=== PATIENT | female | born 1955 | race Caucasian/White ===

== ENCOUNTER 2018-03-13 09:32 | Emergency (ER) | payer BC, OTHER ==
--- NOTE | 2018-03-13 09:57 | UC ---
Abdominal Pain Female HPI - HPI Summary HPI Summary: 63 yo female presents with low back pain and lower abdominal pain. She tells me that her low back pain started about 2 weeks ago. 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 Denies specific injury. Has been taking ibuprofen intermittently with mild relief. Certain positions improve her pain. Regarding her lower abdominal pain; she tells me that 2 days ago she developed mild LLQ pain that felt like she needed to have a bowel movement so she took a laxative. The next morning had a bowel movement, but this did not change her pain. Pain seems worse today and she is nauseous. Denies fever, chills, SOB, chest pain, vomiting, diarrhea, constipation, blood in stool, dysuria, hx of kidney stones. She has never had a colonoscopy. - History of Current Complaint Hx Obtained From: Patient Severity Initially: Mild Severity Currently: Moderate Pain Intensity: 6 Pain Scale Used: 0-10 Numeric <Ted Shell - Last Filed: 03/13/18 11:47> <Daniel Kline - Last Filed: 03/13/18 14:18> - History of Current Complaint Stated Complaint: ABDOMINAL/BACK PAIN Time Seen by Provider: 03/13/18 09:57 Allergies/Adverse Reactions: Allergies Allergy/AdvReac Type Severity Reaction Status Date / Time No Known Allergies Allergy Verified 03/13/18 10:10 Home Medications: Home Medications Ibuprofen TAB* [Advil TAB*] 400 mg PO Q6H PRN 03/13/18 [History Confirmed ] PMH/Surg Hx/FS Hx/Imm Hx - Additional Past Medical History Additional PMH: None Previously Healthy: Yes - Family History Known Family History: Positive: None - Social History Occupation: Employed Full-time Lives: With Family Alcohol Use: Occasionally Substance Use Type: None Smoking Status (MU): Light Every Day Tobacco Smoker Type: Cigarettes <Ted Shell - Last Filed: 03/13/18 11:47> Review of Systems Constitutional: Negative Skin: Negative Respiratory: Negative Cardiovascular: Negative Gastrointestinal: Abdominal Pain, Nausea Genitourinary: Negative Motor: Negative Neurovascular: Negative Musculoskeletal: Other: - LBP Neurological: Negative Psychological: Negative All Other Systems Reviewed And Are Negative: Yes <Ted Shell - Last Filed: 03/13/18 11:47> Physical Exam - Summary Physical Exam Summary: GENERAL: NAD. WDWN. No pain distress. SKIN: No rashes, sores, lesions, or open wounds. NECK: Supple. FROM. Nontender. No lymphadenopathy. CHEST: CTAB. No r/r/w. No accessory muscle use. Breathing comfortably and in no distress. CV: RRR. Without m/r/g. Pulses intact. Brisk cap refill. ABDOMEN: Moderate LLQ pain. Soft. No distention or guarding. No CVA tenderness. Bowel sounds present MSK: TTP over lumbar paraspinal muscles. Positive SLR b/l. Strength 5/5 B/L LEs including dorsiflexion and plantar flexion. FROM B/L LEs. No edema. NEURO: Alert. CN II-XII grossly intact. Sensations intact B/L LEs L3-S1. PSYCH: Age appropriate behavior. Triage Information Reviewed: Yes Vital Signs: Vital Signs: Temp Pulse Resp BP Pulse Ox 98.2 F 99 20 155/79 98 03/13/18 10:02 03/13/18 10:02 03/13/18 10:02 03/13/18 10:02 03/13/18 10:02 Laboratory Tests 03/13/18 10:19 POC Urine Color Merle POC Urine Clarity Clear POC Urine pH 5.0 POC Ur Specif [place] >= 1.030 POC Urine Protein 1+ A POC Ur Glucose (UA) Negative POC Urine Ketones 1+ A POC Urine Blood 1+ A POC Urine Nitrite Negative POC Urine Bilirubin 1+ A POC Urine Urobilinogen 0.2 POC U Leukocyte Esteras Trace A Vital Signs Reviewed: Yes <Ted Shell - Last Filed: 03/13/18 11:47> Vital Signs: Initial Vital Signs Temp 98.2 F 03/13/18 10:02 Pulse 99 03/13/18 10:02 Resp 20 03/13/18 10:02 BP 155/79 03/13/18 10:02 Pulse Ox 98 03/13/18 10:02 <Daniel Kline - Last Filed: 03/13/18 14:18> Abd Pain Female Course/Dx - Course Course Of Treatment: CT: IMPRESSION: 1. WALL THICKENING AND STRANDING AROUND THE PROXIMAL SIGMOID COLON NONSPECIFIC ALTHOUGH. MOST CONSISTENT WITH DIVERTICULITIS. RECOMMEND CLINICAL CORRELATION AND FOLLOW-UP. 2. SMALL NONOBSTRUCTING RIGHT RENAL CALCULUS. 3. HYPODENSE LESION IN THE SPLEEN. RECOMMEND A FOLLOW-UP OUTPATIENT CONTRAST-ENHANCED CT. OF THE ABDOMEN FOR FURTHER EVALUATION. 4. GRADE 1 ANTERIOR SPONDYLOLISTHESIS AT THE L5-S1 LEVEL AND BILATERAL SPONDYLOLYSIS AT. THE L5 LEVEL. Diverticulitis. Muscle strain. Advised to schedule f/u with her PCP as soon as possible for recheck and to f/u with CT scan findings. - Differential Dx/Diagnosis Provider Diagnoses: Diverticulitis. Low back pain <Ted Shell - Last Filed: 03/13/18 11:47> Discharge - Sign-Out/Discharge Documenting (check all that apply): Discharge/Admit/Transfer - Billing Disposition and Condition Condition: STABLE Disposition: Home <Ted Shell - Last Filed: 03/13/18 11:47> - Billing Disposition and Condition Condition: STABLE Disposition: Home <Daniel Kline - Last Filed: 03/13/18 14:18> - Discharge Plan Condition: Stable Disposition: HOME Prescriptions: Ciprofloxacin TAB* [Cipro 500 MG TAB*] 500 mg PO BID #14 tab Cyclobenzaprine TAB* [Flexeril 10 MG TAB*] 10 mg PO BID PRN #14 tab PRN Reason: Pain Meloxicam 7.5 mg PO BID PRN #20 tablet PRN Reason: Pain metroNIDAZOLE [Flagyl 500 MG TAB] 500 mg PO TID #21 tab Patient Education Materials: Diverticulitis (ED) Forms: *Work Release Referrals: Laquita Menon MD [Primary Care Provider] - As Soon As Possible Additional Instructions: If you develop a fever, shortness of breath, chest pain, new or worsening symptoms - please call your PCP or go to the ED. Your blood pressure was high at todays visit. Please see your primary provider within 4 weeks for recheck and re-evaluation. 1) Please schedule a follow up appointment with your PCP as soon as possible. I recommend you get a colonoscopy 2) MEDICATIONS: - Cipro (antibiotic) is one tablet TWO times a day for 7 days - Metronidazole (antibiotic) is one tablet THREE times a day for 7 days - Flexeril for your back pain -- May start now. Please try one tab at bedtime first to see how this effects you. It may make you drowsy/sleepy. If you do ok with this and tolerate it well, you can take it twice a day. - Meloxicam for your back pain - PLEASE WAIT UNTIL YOU FINISH ANTIBIOTICS (7 DAYS) before taking this medication as it could worsen your stomach symptoms. Per institutional requirements, I have reviewed the chart, however, I was not consulted specifically or made aware of this patient by the above midlevel provider. I did not personally evaluate, interact with , or disposition this patient.
[2018-03-13 10:10] VITALS: BP 155/79
--- NOTE | 2018-03-13 11:04 | RAD ---
INDICATION: Left lower quadrant pain. COMPARISON: There are no prior studies available for comparison. TECHNIQUE: A CT scan of the abdomen and pelvis was performed without intravenous and without oral contrast. Contiguous axial sections were obtained from the lung bases through the symphysis pubis. Images were reconstructed in the coronal and sagittal planes. FINDINGS: The lung bases are clear. No pleural effusion is present. The liver is normal in size without significant focal abnormality on this noncontrast study. No calcified gallstones are seen. The pancreas appears to be within normal limits. The spleen is normal in size. There is a hypodense lesion in the posterior aspect of the spleen measuring 2.0 cm in size. The adrenal glands appear within normal limits. The kidneys are normal in size. There is a small 2 mm calculus present in the upper pole of the right kidney which is nonobstructing. There are multiple bilateral peripelvic renal cysts. No ureteral or bladder calculi are seen. The aorta is normal in caliber with moderate calcific plaque present. No significant enlarged retroperitoneal lymph nodes are seen. There appears to be a small hiatal hernia. The stomach, small and large bowel appear nondistended. The appendix is within normal limits. There is mild to moderate sigmoid diverticulosis. In addition there is thickening of the wall of the proximal sigmoid colon and stranding in the surrounding fat which is a nonspecific finding although most consistent with diverticulitis. No abscess is seen. There is a small periumbilical hernia containing fat. The uterus is anteverted and normal in size. No free intraperitoneal air or fluid is seen. There is grade 1 anterior spondylolisthesis at the L5-S1 level and bilateral spondylolysis at the L5 level. No other focal osseous abnormalities are seen. IMPRESSION: 1. WALL THICKENING AND STRANDING AROUND THE PROXIMAL SIGMOID COLON NONSPECIFIC ALTHOUGH MOST CONSISTENT WITH DIVERTICULITIS. RECOMMEND CLINICAL CORRELATION AND FOLLOW-UP. 2. SMALL NONOBSTRUCTING RIGHT RENAL CALCULUS. 3. HYPODENSE LESION IN THE SPLEEN. RECOMMEND A FOLLOW-UP OUTPATIENT CONTRAST-ENHANCED CT OF THE ABDOMEN FOR FURTHER EVALUATION. 4. GRADE 1 ANTERIOR SPONDYLOLISTHESIS AT THE L5-S1 LEVEL AND BILATERAL SPONDYLOLYSIS AT THE L5 LEVEL.
== END 2018-03-13 11:37 | disposition home or self-care (01) ==
LOC: UCCORT 09:32
DX: K57.92 Diverticulitis of intestine, part unspecified, without perforation or abscess without bleeding (principal); M54.5 Low back pain; F17.210 Nicotine dependence, cigarettes, uncomplicated
CPT/HCPCS: 74176; 81003; 87086; 99202; G0463

== ENCOUNTER 2018-04-11 15:47 | Emergency (ER) | payer BC ==
[2018-04-11 16:03] VITALS: BP 181/89
--- NOTE | 2018-04-11 16:16 | UC ---
Complaint Female HPI - HPI Summary HPI Summary: Patient presents complaining of a rash. She first noticed it 2 weeks ago. She notes it began in the pubic area with some vague itching and then about 3 days later she noted that it felt a little sore. A short time later she got additional rash in her buttock area. She states that her took a look and felt that it looked like a blister. She had a friend who is a nurse take a look. She felt it might be a form of herpes. She's been treating this with a and D ointment which has helped some of the itching and soreness but the rash continues. She denies any current or recent illness. She denies any history of MRSA. She is adamant that she has no risk or concern for any type of sexually transmitted disease. She has no fever, joint pains or other rash. - History Of Current Complaint Chief Complaint: [place] Stated Complaint: PERSONAL Time Seen by Provider: 04/11/18 16:02 Hx Obtained From: Patient Onset/Duration: Gradual Onset Timing: Constant Pain Intensity: 7 Associated Signs And Symptoms: Negative: Fever, Vaginal Bleeding/Discharge - Allergies/Home Medications Allergies/Adverse Reactions: Allergies Allergy/AdvReac Type Severity Reaction Status Date / Time No Known Allergies Allergy Verified 03/13/18 10:10 Home Medications: Home Medications Vits A and D/White Pet/Lanolin [A and D Ointment] 1 applic TOPICAL DAILY [History Confirmed 04/11/18] PMH/Surg Hx/FS Hx/Imm Hx Previously Healthy: Yes - Surgical History Surgical History: None - Family History Known Family History: Positive: Hypertension - Social History Occupation: Employed Full-time Lives: With Family Alcohol Use: None Substance Use Type: None Smoking Status (MU): Never Smoked Tobacco Type: Cigarettes Review of Systems Constitutional: Negative Skin: Rash Eyes: Negative ENT: Negative Respiratory: Negative Cardiovascular: Negative Gastrointestinal: Negative Genitourinary: Negative Motor: Negative Neurovascular: Negative Musculoskeletal: Negative Neurological: Negative Psychological: Negative Is Patient Immunocompromised?: No All Other Systems Reviewed And Are Negative: Yes Physical Exam Triage Information Reviewed: Yes Appearance: Well-Appearing Vital Signs: Initial Vital Signs Temp 98.2 F 04/11/18 15:57 Pulse 92 04/11/18 15:57 Resp 20 04/11/18 15:57 BP 181/89 04/11/18 15:57 Pulse Ox 99 04/11/18 15:57 Vital Signs Reviewed: Yes Eyes: Positive: Conjunctiva Clear ENT: Positive: Normal ENT inspection Neck: Positive: Supple, Nontender, No Lymphadenopathy Respiratory: Positive: Lungs clear, Normal breath sounds Cardiovascular: Positive: RRR, No Murmur Abdomen Description: Positive: Nontender, No Organomegaly, Soft, Other: - No inguinal adenopathy. Bowel Sounds: Positive: Present Musculoskeletal: Positive: ROM Intact, No Edema Neurological: Positive: Alert Psychological: Positive: Age Appropriate Behavior Skin Exam: Normal, Other - /irving-rectal areas: atrophy with superficial errosion to apex and labia. the same is notes to the L medial-deep buttock. there are multiple tiny pimple type spots to irving, rectal and buttocks. Culture obtained. Complaint Female Dx - Course Course Of Treatment: Hx/PE d/w Dr Patel whom examined the rash. We argeed on tx and dermatology referal as well. will cover for bacterial source with bactroban and kelex plus d/c prior tx. Repeat BP 150/88. no hx htn. I think BP is at least partly visit related; however, pt agrees to f/u pcp for recheck. Pt declined to have d/c instructions reprinted to reflect this. - Differential Dx/Diagnosis Provider Diagnoses: Acute rash to genital and irving areas Discharge - Sign-Out/Discharge Documenting (check all that apply): Patient Departure - Discharge Plan Condition: Stable Disposition: HOME Prescriptions: Cephalexin CAP* [Keflex CAP*] 500 mg PO TID #21 cap Mupirocin 2% OINT* [Bactroban 2 % Oint*] 1 applic TOPICAL BID 10 Days #1 tube Patient Education Materials: Acute Rash (ED), Sitz Bath (DC) Forms: *Work Release Referrals: Laquita Meonn MD [Primary Care Provider] - If Needed Emmanuel Gutiérrez MD [Medical Doctor] - As Soon As Possible Additional Instructions: STOP ALL PRIOR TREATMENTS. - Billing Disposition and Condition Condition: STABLE Disposition: Home
--- NOTE | 2018-04-11 22:04 | UC ---
- Progress Note Progress Note: please notify pt of pcr test (+) MRSA stop keflex begin bactrim DS twice daily Discharge - Sign-Out/Discharge Documenting (check all that apply): Post-Discharge Follow Up - Discharge Plan Condition: Stable Disposition: HOME Prescriptions: Cephalexin CAP* [Keflex CAP*] 500 mg PO TID #21 cap Mupirocin 2% OINT* [Bactroban 2 % Oint*] 1 applic TOPICAL BID 10 Days #1 tube Sulfamethox/Trimethoprim DS* [Bactrim DS 800/160 TAB*] 1 tab PO BID #14 tab Patient Education Materials: Acute Rash (ED), Sitz Bath (DC) Forms: *Work Release Referrals: Emmanuel Gutiérrez MD [Medical Doctor] - As Soon As Possible Laquita Menon MD [Primary Care Provider] - If Needed Additional Instructions: STOP ALL PRIOR TREATMENTS. - Billing Disposition and Condition Condition: STABLE Disposition: Home
== END 2018-04-11 16:48 | disposition home or self-care (01) ==
LOC: UCCORT 15:47
DX: R21 Rash and other nonspecific skin eruption (principal); A49.02 Methicillin resistant Staphylococcus aureus infection, unspecified site; B95.61 Methicillin susceptible Staphylococcus aureus infection as the cause of diseases classified elsewhere; B95.4 Other streptococcus as the cause of diseases classified elsewhere
CPT/HCPCS: 87070; 87077; 87186; 87205; 87640; 87641; 99212; G0463